=== PATIENT | male | born 1965 | race Caucasian/White ===

== ENCOUNTER 2019-10-31 17:58 | Observation (INO) | payer BC ==
[~2019-10-31] VITALS: Ht 172.7 cm; Wt 97.7 kg
--- NOTE | ~2019-10-31 | HEMODYNAMI ---
PATIENT:SHANTEL WILCOX MEDICAL RECORD: [id number] : 65 LOCATION:D. [id number] ADMISSION DATE: 10/31/19 Generatedon:11/01/201910:58 Patient name: SHANTEL WILCOX Patient #: [id number] SSN: : 04/1966 Date of study: 11/01/2019 Page: Of Hemodynamic Procedure Report Patient Data Patient Demographics Procedure consent was obtained First Name: SHANTEL Gender: Male Last Name: BRENDEN : 1965 Patient #: [id number] Age: 54 year(s) Race: Additional ID: [id number] Contact details [address]: [address] [place] [address] [place] State: [place] City: [place] Zip code: [address] Past Medical History Allergies Allergen Reaction Date Comments Reported Other allergy 11/01/2019 pcn, promethazine Admission Admission Data Admission Date: 10/31/2019 Admission Time: 20:23 Arrival Date: 11/01/2019 Arrival Time: 0:00 Admit Source: Other Insurance Payor: Private Room #: [id number] health insurance Height (in.): 68 BSA: 2.11 (m2) Height (cm.): 172.72 BMI: 32.61 (kg/m2) Weight (lbs.): 214.44 Weight (kg.): 97.27 Lab Results Lab Result Date: 11/01/2019 Lab Result Time: 0:00 Biochemistry Name Units Result Min Max BUN mg/dl 17 --(---*)-- 7 18 CK-MB ng/ml 6.6 --(----)-* 0 3.6 Creatinine mg/dl 1.3 --(---*)-- 0.6 1.3 eGFR ml/min 61.30370 *-(----)-- 90 120 NONAFRICAN Troponin l ng/ml 0.017 --(-*--)-- 0 0.06 CBC Name Units Result Min Max Hematocrit % 47.7 --(-*--)-- 42 54 Hemoglobin g/dl 15.6 --(--*-)-- 13.5 17.5 Procedure Procedure Types Cath Procedure Diagnostic Procedure [facility] w/Coronaries Sedation Charges Moderate Sedation up to 30 minutes Procedure Description Procedure Date Procedure Date: 11/01/2019 Procedure Start Time: 10:18 Procedure End Time: 10:53 Procedure Staff Name Function Florentino Jim MD Performing Physician Sony Johnson RN Nurse Nuvia Whitaker RT Scrub Makeda Borrego RT Monitor Indication Shortness of breath Palpitations Procedure Data Cath Procedure Fluoroscopy Diagnostic fluoroscopy Total fluoroscopy Time: 8 time: 8 min min Diagnostic fluoroscopy Total fluoroscopy dose: 910 dose: 910 mGy mGy Contrast Material Contrast Material Type Amount (ml) Isovue 300 95 Entry Location Entry Primary Successful Side Size Upsize Upsize Entry Closure Castellanos ccessful Closure Location (Fr) 1 (Fr) 2 (Fr) Remarks Device Remarks Radial Right 6 Fr Mechanical artery Short Compression Estimated blood loss: 5 ml Diagnostic catheters Device Type Used For End Catheter Placement DIAGNOSTIC Jose Miguel 110cm Multi-vessel 5Fr catheter ([id number]) Angiography DIAGNOSTIC [place] 110cm 5 Multi-vessel Fr catheter (159330) Angiography Procedure Complications No complications Procedure Medications Medication Administration Route Dosage Oxygen etCO2 Nasal cannula 2 l/min Heparin Flush Bag added to field 2 bags (1000units/500ml NS) 0.9% NaCl I.V. 100 ml/hr Versed I.V. 2 mg Fentanyl I.V. 50 mcg Radial Cocktail I.A. 1 syringe (Verapamil 2mg/Nitro 400mcg/Heparin 1500units) Versed I.V. 1 mg Fentanyl I.V. 50 mcg Lidocaine 2% added to field 20 Versed I.V. 1 mg Heparin Bolus I.V. 2000 units Fentanyl I.V. 50 mcg Fentanyl I.V. 50 mcg Hemodynamics Rest BSA: 2.11 (m2) HGB: 15.6 (g/dl) O2 Consumption: Estimated: 245.99 (ml/min) O2 Co nsumption indexed: Estimated:116.58 (ml/min/m) Heart Rate: 64 (bpm) Pressure Samples Time Site Value (mmHg) Purpose Heart Use Rate(bpm) 10:26 LV 137/31,39 Snapshot 70 Gradients Valve Time Site Site Mean SEP/DFP Peak To Heart Use 1 2 (mmHg) (sec/min) Peak Rate (mmHg) (bpm) Aortic 10:27 LV AO 72 Snapshots Pre Cath Intra NCS Post Cath Vital Signs Time Heart Resp SPO2 etCO2 NIBP (mmHg) Rhythm Pain Sedation Rate (ipm) (%) (mmHg) Status Level (bpm) 10:12:46 66 15 95 36 136/84(110) NSR 0 (11) 10(A) , No pain 10:16:58 66 16 94 36.8 127/94(101) NSR 0 (11) 10(A) , No pain 10:21:21 65 17 96 37.5 126/70(105) NSR 0 (11) 10(A) , No pain 10:25:35 64 18 94 36 142/90(113) NSR 0 (11) 9(A) , No pain 10:29:47 70 18 94 34.5 126/77(112) NSR 0 (11) 9(A) , No pain 10:34:05 70 18 93 36.8 126/83(105) NSR 0 (11) 9(A) , No pain 10:38:19 66 17 94 21 132/91(114) NSR 0 (11) 9(A) , No pain 10:42:33 66 18 95 44.3 137/94(119) NSR 0 (11) 9(A) , No pain 10:46:51 65 15 94 35.3 139/96(130) NSR 0 (11) 9(A) , No pain 10:51:11 62 16 93 39.8 135/92(126) NSR 0 (11) 10(A) , No pain Medications Time Medication Route Dose Verified Delivered Reason Not es Effectiveness by by 10:13:31 Oxygen etCO2 2 l/min Florentino Buffie used for Nasal Hernán Johnson RN procedure cannula 10:13:43 Heparin Flush added 2 bags Florentino Florentino used for Bag to Hernán Jim MD procedure (1000units/500ml field NS) 10:13:51 0.9% NaCl I.V. 100 Florentino Buffie Per physician ml/hr Hernán Johnson RN 10:13:55 Lidocaine 2% added 20ml Florentino Florentino for local to vial Hernán Jim MD anesthetic field 10:16:03 Versed I.V. 2 mg Florentino Buffie for sedation Hernán Johnson RN 10:16:11 Fentanyl I.V. 50 mcg Florentino Buffie for sedation Hernán Johnson RN 10:23:16 Versed I.V. 1 mg Florentino Florentino for sedation Hernán Jim MD 10:23:20 Fentanyl I.V. 50 mcg Florentino Florentino for sedation Hernán Jim MD 10:26:06 Radial Cocktail I.A. 1 Florentino Florentino for (Verapamil syringe Hernán Jim MD vasodilation 2mg/Nitro 400mcg/Heparin 1500units) 10:28:15 Fentanyl I.V. 50 mcg Florentino Buffie for sedation Hernán Johnson RN 10:28:25 Versed I.V. 1 mg Florentino Buffie for sedation Hernán Johnson RN 10:39:21 Heparin Bolus I.V. 2000 Florentino Buffie for aretha ified units Hernán Johnson RN anticoagulation with dr jim for IFR. 10:39:45 Fentanyl I.V. 50 mcg Florentino Buffie for sedation aretha ified Hernán Johnson RN with dr jim for IFR. Procedure Log Time Note 9:17:30 Informed consent obtained and on chart 9:24:01 Patient allergic to Other allergypcn, promethazine 9:24:06 Arrival Date: 11/01/2019 12:00:00 AM 9:24:08 Admit Source: Other 9:24:16 Insurance Payor : Private health insurance 9:24:44 Patient Height : 68 inches 9:24:50 Patient Weight : 214.44 lbs 9:25:45 Lab Result : Troponin l 0.017 ng/ml 9:25:45 Lab Result : eGFR NONAFRICAN 61.44502 ml/min 9:25:45 Lab Result : CK-MB 6.6 ng/ml 9:25:45 Lab Result : BUN 17 mg/dl 9:25:45 Lab Result : Creatinine 1.3 mg/dl 9:25:45 Lab Result : Hematocrit 47.7 % 9:25:45 Lab Result : Hemoglobin 15.6 g/dl 9:25:57 Diagnostic Cath Status : Urgent 9:26:12 Indication : Shortness of breath 9:26:19 Indication : Palpitations 9:26:25 Procedure Status Urgent Heart Cath (IP). 9:26:33 Time tracking: Call back (After hours or weekends) 9:26:38 Plan of Care:Hemodynamics will remain stable., Cardiac rhythm will remain stable., Comfort level will be maintained., Respiratory function will remain adequate., Patient/ family verbilizes understanding of procedure., Procedure tolerated without complication., Recovers from procedure without complications.. 9:27:00 H&P Date Dictated: 10/31/2019 Within 30 days and on chart.. 9:27:01 Pre-procedure instructions explained to patient. 9:27:01 Pre-op teaching completed and patient verbalized understanding. 9:27:03 Family unavailable. 9:27:05 Patient NPO since Midnight. 9:27:09 Alarms reviewed by R. N. 9:27:09 Sharps counted by scrub and verified by R.N. 9:27:12 Stress Test: no; N/A ? 9:27:14 Lab results completed and on chart. 9:32:27 Risk of Mortality: 0.7 9:32:30 Risk of blood transfusion: 0.1 9:32:33 Risk of SRAVAN: 0.8 9:38:16 Pt states that he has already spoken and informed his daughter Bev Kwong and he would speak to her after procedure. Pt requests not to call her, have Dr Jim speak to him first, Dr Jim informed of pt request. 9:40:19 Sony Johnson RN sent for patient. Start room use. 9:49:39 Patient received from Med II to CCL 1 Alert and oriented. Tansferred to table in Supine position. 9:49:43 Warm blankets applied, and heber hugger turned on for patient comfort. 9:49:43 Correct patient and procedure confirmed by team. 9:49:44 ECG and BP/O2 sat monitors applied to patient. 9:49:49 Is the patient allergic to Iodine/contrast media? No. 9:49:50 Was the patient premedicated? Yes 9:49:51 Is patient on blood thinner?No 9:49:53 Patient diabetic? No. 9:49:55 If diabetic: On Metformin? N/A 9:49:56 ----Pre-sedation anethsthesia assessment.---- 10:01:35 Previous problem with sedation/anesthesia? No ? 10:01:38 Snore? Yes 10:01:40 Sleep apnea? No 10:01:41 Deviated septum? No 10:01:42 Opens mouth fully? Yes 10:01:42 Sticks out tongue? Yes 10:01:44 Airway obstruction? No ? 10:01:47 Dentures? No ? 10:01:51 Pre procedure: right dorsailis pedis pulse 2+ Normal; easily identifiable; not easily obliterated 10:01:55 Pre procedure: left dorsailis pedis pulse 2+ Normal; easily identifiable; not easily obliterated 10:01:58 Patient pain scale 0/10 ?. 10:02:07 IV patent on arrival in left forearm with 0.9% NaCl at [facility]. 10:02:12 Right Radial & Right Groin area was prepped with chlora-prep and draped in sterile fashion 10:11:36 Vital chart was started 10:13:31 Oxygen 2 l/min etCO2 Nasal cannula was administered by Sony Johnson RN; used for procedure; Verbal order read back and verified. 10:13:43 Heparin Flush Bag (1000units/500ml NS) 2 bags added to field was administered by Florentino Jim MD; used for procedure; Verbal order read back and verified. 10:13:51 0.9% NaCl 100 ml/hr I.V. was administered by Sony Johnson RN; Per physician; Verbal order read back and verified. 10:13:55 Lidocaine 2% 20ml vial added to field was administered by Florentino Jim MD; for local anesthetic; Verbal order read back and verified. 10:14:15 Physician arrived 10:14:15 --------ALL STOP TIME OUT------ 10:14:16 Final Timeout: patient, procedure, and site verified with staff and physician. All members of the team are in agreement. 10:14:20 Right Radial & Right Groin site verified by team. 10:14:25 Fire Safety Assessment: A--An alcohol-based skin anteseptic being used preoperatively., C--Open oxygen or nitrous oxide is being used., D--An ESU, laser, or fiber-optic light is being used. 10:14:29 Physical assessment completed. ASA score P 2 - A patient with mild systemic disease as per Florentino Jim MD. 10:14:35 Sedation plan: IV Moderate Sedation Medication:Versed, Fentanyl 10:15:19 2) 60-89 Mildly reduced kidney function, and other findings (as for stage 1) point to kidney disease. 10:15:45 Maximum allowable contrast dose (3.7 X eGFR X 0.75)169 ml. 10:15:49 Use device set Radial Dx or PCI 10:15:51 ACIST Syringe (81205) opened to sterile field. 10:15:51 Medline Cath Pack ([id number]) opened to sterile field. 10:15:51 Bag Decanter (2002S) opened to sterile field. 10:15:52 ACIST Hand Control (14186) opened to sterile field. 10:15:52 ACIST Manifold (27609) opened to sterile field. 10:15:53 Tegaderm 4 x 4 (1626W) opened to sterile field. 10:15:53 MBrace Wrist Support ([id number]) opened to sterile field. 10:15:56 SHEATH 6FR RAIN (3633696) opened to sterile field. 10:15:57 EMERALD Guide Wire (714-275) opened to sterile field. 10:16:01 Procedure started. 10:16:01 Full Disclosure recording started 10:16:03 Versed 2 mg I.V. was administered by Sony Johnson RN; for sedation; Verbal order read back and verified. 10:16:11 Fentanyl 50 mcg I.V. was administered by Sony Johnson RN; for sedation; Verbal order read back and verified. 10:18:58 Local anesthetic to right radial artery with Lidocaine 2% by Florentino Jim MD.INITIAL ACCESS ONLY 10:20:00 A 6 Fr Short sheath was inserted into the Right Radial artery 10:20:51 Baseline sample Acquired. 10:23:16 Versed 1 mg I.V. was administered by Florentino Jim MD; for sedation; Verbal order read back and verified. 10:23:20 Fentanyl 50 mcg I.V. was administered by Florentino Jim MD; for sedation; Verbal order read back and verified. 10:25:15 A DIAGNOSTIC Jose Miguel 110cm 5Fr catheter (118670) was advanced over the wire and used for Multi-vessel Angiography. 10:26:06 Radial Cocktail (Verapamil 2mg/Nitro 400mcg/Heparin 1500units) 1 syringe I.A. was administered by Florentino Jim MD; for vasodilation; Verbal order read back and verified. 10:26:52 LV hemodynamics recorded. 10:26:54 LV gram done using ALVAREZ 10::57 Injector settings: Ml/sec: 5, Volume: 15, 10:27:06 EF : 50 % 10:27:34 RCA angiography performed. 10:27:36 Injector settings: Ml/sec: 3, Volume: 6, 10:28:15 Fentanyl 50 mcg I.V. was administered by Sony Johnson RN; for sedation; Verbal order read back and verified. 10:28:25 Versed 1 mg I.V. was administered by Sony Johnson RN; for sedation; Verbal order read back and verified. 10:29:08 Catheter removed. 10:29:19 A DIAGNOSTIC [place] 110cm 5 Fr catheter (445111) was advanced over the wire and used for Multi-vessel Angiography. 10:30:57 LCA angiography performed. 10:30:59 Injector settings: Ml/sec: 3, Volume: 6, 10:37:34 Proceeding to intervention. 10:38:25 INFLATOR Merit BasixCompak (NI1355) opened to sterile field. 10:38:26 [place] Verrata Plus pressure wire (61089Z) opened to sterile field. 10:38:26 TUBING High Pressure Extension Tubing (Hernán) (ZH8227M) opened to sterile field. 10:39:21 Heparin Bolus 2000 units I.V. was administered by Sony Johnson RN; for anticoagulation; verified with dr jim for IFR. Verbal order read back and verified. 10:39:45 Fentanyl 50 mcg I.V. was administered by Sony Johnson RN; for sedation; verified with dr jim for IFR. Verbal order read back and verified. 10:41:57 FFR/IFR wire advanced. 10:42:01 Baseline FFR 1. 10:49:40 unable to advance IFR wire past lesion; Dr Jim planning to perform stress test to determine if patient is ischemic 10:50:30 Wire removed. 10:50:33 Guide catheter removed. 10:50:53 Sheath removed intact; hemostasis achieved with Mechanical Compression to the Right Radial artery. 10:50:56 ZEPHYR REGULAR TR BAND (682638) opened to sterile field. 10:51:01 Procedure ended.(Physican Out) 10:51:24 Fluoroscopy time 08.00 minutes. 10:51:28 Flurop Dose total: 910 10:51:28 Fluoroscopy dose: 910 mGy 10:51:35 Dose Area Product 75542 mGy/cm. 10:51:40 Contrast amount:Isovue 300 95ml. 10:51:44 Maximum allowable dose exceeded? No. 10:51:45 Sharps counted by scrub and verified by R.N. 10:51:48 [place] band inflated with 9cc of air. 10:51:49 Insertion/operative site no bleeding no hematoma. 10:51:53 Post right radial artery:stable 10:51:55 Post Procedure Pulses reassessed and unchanged 10:51:58 Post procedure rhythm: unchanged. 10:52:02 Estimated blood loss: 5 ml 10:52:04 Post procedure instruction explained to patient.Patient verbalizes understanding. 10:52:04 Patient needs reinforcement of post procedure teaching. 10:52:24 Procedure type changed to Cath procedure, Diagnostic procedure, LHC, [facility] w/Coronaries, Sedation Charges, Moderate Sedation up to 30 minutes 10:52:25 Procedure and supply charges have been captured, reviewed, submitted and are correct. 10:52:32 Procedure Complication : No complications 10:53:05 Vital chart was stopped 10:53:16 [facility] Findings: MVD- MD will discuss options w/ pt 10:53:17 Operative report dictated upon procedure completion. 10:53:18 See physician's report for complete and final results. 10:53:21 Report given to [facility]. 10:53:23 Patient transfered to [facility] with Stretcher. 10:53:24 Procedure ended. 10:53:24 Full Disclosure recording stopped 10:53:28 End room use (Document Last) 10:55:30 ACT drawn and resulted at 181 seconds. (normal therapeutic range 180-240 seconds). 10:55:56 End room use (Document Last) Device Usage Item Name Manufacture Quantity Catalog Hospital Part Current Mini mal Lot# / Number Charge Number Stock Stock Serial# Code ACIST Acist 1 51709 041243 [id number] [id number] 20 Syringe DJO Global (74868) Launchups Inc Medline Medline 1 [id number] 341526 41684 198592 5 Cath Pack ([id number]) Bag Microtek 1 761046 62140 542781 5 Decanter Medical Inc. (2002S) ACIST Hand Acist 1 02923 126198 941911 709090 5 Control Medical (85440) Systems Inc ACIST Acist 1 38790 561899 906275 339982 5 Manifold Medical (80003) Systems Inc Tegaderm 4 3M 1 1626W 222827 265861 688800 5 x 4 (1626W) MBrace Advanced 1 140-0250-00 289734 85016 106899 5 Wrist Vascular Support Dynamics ([id number]) SHEATH 6FR Cardinal 1 4457292 960310 8209457 019782 5 RAIN Health (8649050) EMERALD Cardinal 1 502-455 220320 632420 938048 5 Guide Wire Health (502-218) DIAGNOSTIC Terumo 1 40-5023 456348 356209 153437 5 Jose Miguel 110cm 5Fr catheter (769824) DIAGNOSTIC Terumo 1 40-5013 088081 981098 521952 5 [place] 110cm 5 Fr catheter (971985) INFLATOR Merit 1 CY6038 737404 568182 588246 15 [facility] BasixCompak (JS4339) [place] 1 04032J 550395 [id number] 927194 5 Verrata Plus pressure wire (08625W) TUBING High Merit 1 [id number] 650244 12257 737125 10 Pressure Medical Extension Tubing (Jim) (BH9719O) ZEPHYR Cardinal 1 681103 909050 3746638 050344 5 REGULAR TR Health BAND (217330) Signature Audit [place] Stage Time Signature Unsigned Intra-Procedure 11/01/2019 Makeda Borrego 10:55:56 AM RT(R) Intra-Procedure 11/01/2019 Sony Johnson RN 10:56:30 AM Intra-Procedure 11/01/2019 Florentino Jim MD 10:58:27 AM [facility] [address] [place] [address]
[2019-10-31] MEDS ORDERED: COREG6.25 MG PO (18:09)
[2019-10-31] MEDS ORDERED: BAYER CHEWABLE81 MG PO (18:10)
[2019-10-31] MEDS ORDERED: MIRAPEX0.125 MG PO (18:10)
[2019-10-31] MEDS ORDERED: LIVALO1 MG PO (18:10)
[2019-10-31] MEDS ORDERED: ALTACE10 MG PO (18:10)
[2019-10-31] MEDS ORDERED: REPATHA SY140 MG/1 M SC (18:11)
[2019-10-31 18:51] LABS: BASOPHILS 0.4 % (0-2); EOSINOPHILS 3.1 % (0-7); HEMATOCRIT 47.7 % (42.0-54.0); HEMOGLOBIN 15.6 g/dL (13.5-17.5); IMMATURE GRANULOCYTES 0.4 % (0-5); LYMPHOCYTES 29.6 % (15-50); MCH 33.3 pg (26.0-34.0); MCHC 32.7 g/dL (31.0-37.0); MCV 101.7 fL (80.0-100.0); MONOCYTES 14.5 % (2-11); PLATELET COUNT 246 10x3/uL (130-400); RBC 4.69 10x6/uL (4.20-6.10); RDW 14.3 % (11.5-14.5); WBC 7.5 10x3/uL (4.8-10.8)
[2019-10-31 19:00] LABS: CALC OSMOLALITY 282 mosm/kg (275-300); CALCIUM 8.6 mg/dL (8.5-10.1); CARBON DIOXIDE 26.7 mmol/L (21.0-32.0); CHLORIDE - SERUM 105 mmol/L (98-107); CREATININE - SERUM 1.3 mg/dL (0.6-1.3); GLUCOSE 97 mg/dL (74-106); SODIUM 141 mmol/L (136-145); UREA NITROGEN 17 mg/dL (7-18); eGFR NON AFRICAN AMERICAN 61 mL/min (90-120)
[2019-10-31 19:06] LABS: APTT 32.9 SECONDS (22.8-39.4); INR 0.91 (0.85-1.17); PROTIME 12.3 SECONDS (11.6-15.0)
[2019-10-31 19:16] LABS: ALBUMIN 4.7 g/dL (3.4-5.0); ALKALINE PHOSPHATASE 49 U/L (30-120); ALT (SGPT) 72 U/L (10-68); BILIRUBIN - TOTAL 0.51 mg/dL (0.2-1.3); CKMB 15.1 U/L (0.0-3.6); MAGNESIUM - SERUM 2.3 mg/dL (1.8-2.4); PROTEIN - SERUM 8.1 g/dL (6.4-8.2)
[2019-10-31 19:17] LABS: CREATINE KINASE 1084 UL (21-232); TROPONIN-I < 0.017 ng/mL (0.000-0.060)
[2019-10-31 19:27] VITALS: BP 144/96
[2019-10-31 20:45] VITALS: BP 133/89
[2019-10-31 22:14] LABS: CKMB 10.8 U/L (0.0-3.6)
[2019-10-31 22:16] LABS: CREATINE KINASE 897 UL (21-232); TROPONIN-I < 0.017 ng/mL (0.000-0.060)
--- NOTE | 2019-10-31 22:40 | NUR ---
PATIENT ARRIVED TO FLOOR VIA WHEELCHAIR. PATIENT IS ALERT AND ORIENTED. PATIENT STATED, THAT HE HAD HIS CALL LIGHT ON IN THE ER AND TRIED TO TELL THEM HE WAS HAVING CHEST PAIN. EKG OBTAINED AND PATIENT GIVEN NITRO. DAYANNA NOVA APN IN ROOM. CALL LIGHT WITHIN REACH. WILL CPOC.
[2019-10-31 22:46] VITALS: BP 119/78
[2019-11-01 01:47] LABS: BASOPHILS 0.3 % (0-2); EOSINOPHILS 4.7 % (0-7); HEMATOCRIT 45.9 % (42.0-54.0); HEMOGLOBIN 14.7 g/dL (13.5-17.5); IMMATURE GRANULOCYTES 0.3 % (0-5); LYMPHOCYTES 36.4 % (15-50); MCH 32.7 pg (26.0-34.0); MCV 102.2 fL (80.0-100.0); MEAN PLATELET VOLUME 9.7 fL (7.4-10.4); MONOCYTES 16.1 % (2-11); NEUTROPHILS 42.2 % (40-80); PLATELET COUNT 231 10x3/uL (130-400); RBC 4.49 10x6/uL (4.20-6.10); RDW 14.4 % (11.5-14.5); WBC 6.2 10x3/uL (4.8-10.8)
[2019-11-01 02:02] VITALS: BMI 32.7
[2019-11-01 02:21] LABS: CALC OSMOLALITY 286 mosm/kg (275-300); CALCIUM 8.1 mg/dL (8.5-10.1); CARBON DIOXIDE 27.4 mmol/L (21.0-32.0); CHLORIDE - SERUM 105 mmol/L (98-107); CKMB 8.8 U/L (0.0-3.6); CREATINE KINASE 766 UL (21-232); CREATININE - SERUM 1.3 mg/dL (0.6-1.3); GLUCOSE 102 mg/dL (74-106); MAGNESIUM - SERUM 2.3 mg/dL (1.8-2.4); PHOSPHOROUS 4.7 mg/dL (2.5-4.9); POTASSIUM - SERUM 3.4 mmol/L (3.5-5.1); SODIUM 143 mmol/L (136-145); UREA NITROGEN 17 mg/dL (7-18); eGFR NON AFRICAN AMERICAN 61 mL/min (90-120)
[2019-11-01 02:22] LABS: TROPONIN-I < 0.017 ng/mL (0.000-0.060)
[2019-11-01] MEDS ORDERED: ALEVE220 MG PO (02:34)
[2019-11-01 04:00] VITALS: BP 121/82
--- NOTE | 2019-11-01 07:15 | NUR ---
RECEIVED PT IN BED WITH EYES CLOSED RESP UNLABORED SKIN W/D COLOR WNL NAD DISTRESS NOTED
[2019-11-01 09:05] VITALS: Ht 172.7 cm; Wt 97.7 kg
[2019-11-01 09:06] LABS: CKMB 6.6 U/L (0.0-3.6); CREATINE KINASE 754 UL (21-232); TROPONIN-I < 0.017 ng/mL (0.000-0.060)
[2019-11-01 09:14] VITALS: BP 140/88
[2019-11-01 09:21] LABS: CHOL - HDL RATIO 3.6 ratio (2.3-4.9); LDL-HDL RATIO 1.1 ratio (1.5-3.5)
--- NOTE | 2019-11-01 09:53 | NUR ---
PT TO DIGITAL ASSOCIATE MEDIA DIRECTOR VIA BED
--- NOTE | 2019-11-01 10:25 | NUR ---
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
[2019-11-01] MEDS ORDERED: Nicoderm [PBKC] TRANSDERM (11:23)
[2019-11-01 12:18] VITALS: BP 113/65
--- NOTE | 2019-11-01 14:25 | NUR ---
REVIEWED DISCHARGE INSTRUCTIONS WITH PATENT STATES UNDERSTANDING COPY GIVEN DCD SALINE LOCK TO LT HAND WITH IV CATHETER INTACT SITE FREE OF REDNESS EXPLAINED WHEN RIDE GETS HERE HAVE THEM CALL AND WE WILL TAKE HIM TO THE EXIT TO BE PICKED UP
--- NOTE | 2019-11-01 14:30 | NUR ---
PT DISCHARGED HOME LEFT UNIT WALKING TO ER EXIT TO DISCHARGE WITH RIDE PT IN STABLE CONDITION
== END 2019-11-01 14:30 | disposition home or self-care (01) ==
LOC: D.ER 17:58 → OBSVTIME 20:23 → D.M2 20:23
PROVIDERS: Family Medicine; Internal Medicine Cardiovascular Disease; ADMIT Family Medicine Adult Medicine; ATTEND Family Medicine Adult Medicine
DX: I25.119 Atherosclerotic heart disease of native coronary artery with unspecified angina pectoris (principal); I10 Essential (primary) hypertension; E78.5 Hyperlipidemia, unspecified; R00.2 Palpitations; D75.89 Other specified diseases of blood and blood-forming organs

== ENCOUNTER → 2019-11-05 11:17 | Outpatient (CLI) | payer BC ==
[2019-11-01 09:05] VITALS: BMI 32.7
[~2019-11-05 11:17] MED LIST: ALEVE220 MG PO; ALTACE10 MG PO; BAYER CHEWABLE81 MG PO; COREG6.25 MG PO; LIVALO1 MG PO; MIRAPEX0.125 MG PO; Nicoderm [PBKC] TRANSDERM; REPATHA SY140 MG/1 M SC
== END | disposition home or self-care (01) ==
LOC: D.HCCARDIO 11:17
PROVIDERS: ATTEND Internal Medicine Cardiovascular Disease
DX: I25.10 Atherosclerotic heart disease of native coronary artery without angina pectoris (principal); R07.9 Chest pain, unspecified; R00.2 Palpitations; R42 Dizziness and giddiness

== ENCOUNTER → 2020-04-22 11:01 | Outpatient (CLI) | payer BC ==
[2019-11-01 09:05] VITALS: BMI 32.7
== END | disposition home or self-care (01) ==
LOC: D.US 11:00
PROVIDERS: ATTEND Thoracic Surgery (Cardiothoracic Vascular Surgery)
DX: I65.29 Occlusion and stenosis of unspecified carotid artery (principal)